=== PATIENT | female | born 2000 | race Caucasian/White ===

== ENCOUNTER 2021-02-05 14:32 | Emergency (ER) | payer OTHER ==
[~2021-02-05] VITALS: Ht 170.2 cm; Wt 81.8 kg
[2021-02-05 15:09] VITALS: BP 122/83; PULSE 99; TEMP 98.5
[2021-02-05] MEDS ORDERED: CEPHALEXIN500 M1 PO (15:44)
[2021-02-05] MEDS ORDERED: NORCO 325 MG-51 TAB PO (15:44)
== END 2021-02-05 15:59 | disposition home or self-care (01) ==
LOC: COL.ER 14:32
DX: L05.01 Pilonidal cyst with abscess (principal)